=== PATIENT | female | born 1945 | race Caucasian/White ===

== ENCOUNTER 2024-12-25 08:54 | Inpatient (IN) | payer OTHER, SELFPAY ==
[2024-12-25] VITALS (11 sets, daily range): BP systolic 129–157; BP diastolic 63–79; PULSE 79–117; RESP 15–23; TEMP 36.2–36.8; O2SAT 88–99; BMI 21.9
--- NOTE | 2024-12-25 09:09 | ED_ITS ---
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 with some abdominal cramping no nausea, vomiting, fever, chills, bodyaches, urinary complaints, chest pain, shortness of breath. Patient is not on any aspirin, anticoagulants, or NSAID. She has had colonoscopies in the past with no known tumors or polyps. Other than what is stated 14 point review of system is negative. Related Data Allergies Allergy/AdvReac Type Severity Reaction Status Date / Time No Known Drug Allergies Allergy Verified 12/25/24 09:17 Review of Systems Review of Systems ROS Unobtainable: All systems reviewed & are unremarkable except as noted in HPI and below Patient History Social History Smoking Status: Former smoker Exam Narrative Exam Narrative: GENERAL: [79] year old patient appears stated age. Well-developed patient, in mild distress. HEAD: Atraumatic. Normocephalic. EYES: Pupils equal round and reactive. Extraocular motions intact. No scleral icterus. No injection or drainage. ENT: Nose without bleeding, purulent drainage. Throat without erythema, tonsillar hypertrophy or exudate. Airway patent. NECK: Trachea midline. Non tender CARDIOVASCULAR: Regular rate and rhythm without murmurs, gallops, or rubs. RESPIRATORY: Clear to auscultation. Breath sounds equal bilaterally. No wheezes, rales, or rhonchi. GASTROINTESTINAL: Abdomen soft, non-tender, nondistended. EXTREMITIES: No edema or joint tenderness. Rectal exam guiac neg BACK: Nontender without deformity or crepitance. No flank tenderness. NEURO: AOx3. SKIN: No rash or erythema of visible areas Initial Vital Signs Initial Vital Signs: Vital Signs Temperature 98.2 F 12/25/24 09:05 Pulse Rate 108 H 12/25/24 09:05 Respiratory Rate 15 12/25/24 09:05 Blood Pressure 156/74 H 12/25/24 09:05 Pulse Oximetry 99 12/25/24 09:05 Oxygen Delivery Method Room Air 12/25/24 09:05 Course Orders Ordered: ED Orders 12/25/24 09:21 CT angio Abd/Pel GI Bleed Stat 12/25/24 09:23 Complete Blood Count AUTO DIFF Stat Comprehensive Metabolic Panel Stat Lipase Stat Ondansetron HCl (Ondansetron 4 Mg/2 Ml Inj) 4 mg IV NOW PRN PRN Reason: Nausea And Vomiting Ondansetron HCl (Ondansetron 4 Mg Odt) 4 mg PO NOW PRN PRN Reason: Nausea And Vomiting Vital Signs Vital signs: Vital Signs - 8 hr 12/25/24 09:05 Temperature 98.2 F Pulse Rate 108 H Respiratory Rate 15 Blood Pressure 156/74 H Pulse Oximetry 99 Oxygen Delivery Method Room Air MDM - Abdominal Pain Lab Data 12/25/24 09:23 12/25/24 09:23 Labs: Lab Results 12/25/24 Range/Units 09:23 WBC 11.0 (4.5-11.0) X10^3/uL RBC 3.89 L (4.0-5.2) X10^6/uL Hgb 12.7 (12.0-16.0) g/dL Hct 37.8 (36-46) % MCV 97.1 (80-100) fL MCH 32.6 (26-34) PG MCHC 33.6 (30-36) % RDW 12.9 (11.6-14.8) % Plt Count 268 (150-400) X10^3/uL Neut % (Auto) 82.2 H (50-75) % Lymph % (Auto) 10.1 L (25-40) % [place] % (Auto) 6.9 (3-14) % Eos % (Auto) 0.1 L (2-4) % Baso % (Auto) 0.7 (0-2) % Neut # (Auto) 9000 H (3578-0877) /uL Lymph # (Auto) 1100 (8483-9951) /uL [place] # (Auto) 800 (0-900) /uL Eos # (Auto) 0 (0-450) /uL Baso # (Auto) 100 (0-100) /uL Sodium 139 (137-145) mmol/L Potassium 3.8 (3.4-5.1) mmol/L Chloride 105 (98-107) mmol/L Carbon Dioxide 23 (22-32) mmol/L BUN 16 (7-17) mg/dL Creatinine 0.65 (0.52-1.04) mg/dL Estimated GFR > 60 (>60) mL/min BUN/Creatinine Ratio 24.6 H (6-22) Glucose 126 H (70-99) mg/dL Calcium 9.5 (8.4-10.2) mg/dL Total Bilirubin 0.6 (0.2-1.3) mg/dL AST 26 (14-36) IU/L ALT 21 (<35) IU/L Alkaline Phosphatase 102 (38-126) U/L Total Protein 8.0 (6.3-8.2) g/dL Albumin 4.3 (3.5-5.0) g/dL Globulin 3.7 (1.7-4.1) g/dL Albumin/Globulin Ratio 1.2 (1.0-2.8) Lipase 44 (23-300) U/L Imaging Data CT scan - abdomen/pelvis: Radiologist's Impression: [place] [address] CT Scan Report Signed Patient: Bonny Smith MR#: [id number] : 1945 Acct:[id number] Age/Sex: 79 / F Date of Service: 12/25/24 Loc: ED Accession Number: [id number] Procedure: CT angio Abd/Pel GI Bleed Ordering Provider: Mayo Armenta D.O. PROCEDURE: CT ANGIO ABD/PEL GI BLEED INDICATIONS: GI BLEED TECHNIQUE: After the administration of intravenous contrast, 2.5 mm sections acquired from the diaphragm to the iliac crests. 10 mm maximum intensity projection (MIP) coronal and sagittal reformats were then performed. For radiation dose reduction, the following was used: automated exposure control. COMPARISON: None. FINDINGS: Image quality: Diagnostic. Abdominal aorta: No aortic aneurysm or evidence of acute aortic syndrome. Mesenteric arteries: Patent without hemodynamically significant stenosis. Renal arteries: Patent without hemodynamically significant stenosis. Lower chest: Unremarkable. ABDOMEN: Liver: No solid mass. Vascular shunt in segment 5/6, likely due to the presence a hemangioma. Gallbladder: No radiopaque gallstones or wall thickening. Biliary ducts: No biliary dilation. Pancreas: No ductal dilation. Spleen: Size is within normal limits. Adrenal Glands: No adrenal nodules. Kidneys and Ureters: No hydronephrosis. No solid mass. No complex renal cystic lesion which requires follow up. Stomach and Bowel: Pancolitis, with severe thickening noted of the descending and transverse colon. Adjacent pericolonic fat stranding . Peritoneum: Free fluid along the left pericolic gutter. Ventral Wall: No hernia. Abdominal Nodes: No retroperitoneal or mesenteric adenopathy by size criteria. Vessels: Aorta, as above. Normal IVC. PELVIS: Pelvic Organs: Calcified fibroid at the fundus. Pessary present. Bladder: Unremarkable. Pelvic Nodes: No enlarged lymph nodes. Miscellaneous: No inguinal hernias are seen. Bones: No aggressive osseous abnormality. Degenerative disc disease of the lumbar spine. IMPRESSION: Severe pancolitis. Findings likely represent C difficile given extent. MDM Narrative Medical decision making narrative: Vital signs, nurse triage note, medication list, previous ER visits, and all imaging studies reviewed. CT abdomen pelvis showed severe pancolitis findings likely represent C diff given extent. Patient is started on fidomyxin and fluids here. WBC 11 hemoglobin 12.7 platelets 268 sodium 139 potassium 3 point glucose 126. Differential diagnosis includes upper versus lower GI bleed, dehydration, electrolyte derangement. Case discussed with Dr. Abarca who has graciously accepted the patient for inpatient admission Discharge Plan Departure Patient Disposition: Admitted As Inpatient Clinical Impression: Pancolitis, Clostridium difficile colitis
--- NOTE | 2024-12-25 09:21 | DI.CT.S_ITS ---
PROCEDURE: CT ANGIO ABD/PEL GI BLEED INDICATIONS: GI BLEED TECHNIQUE: After the administration of intravenous contrast, 2.5 mm sections acquired from the diaphragm to the iliac crests. 10 mm maximum intensity projection (MIP) coronal and sagittal reformats were then performed. For radiation dose reduction, the following was used: automated exposure control. COMPARISON: None. FINDINGS: Image quality: Diagnostic. Abdominal aorta: No aortic aneurysm or evidence of acute aortic syndrome. Mesenteric arteries: Patent without hemodynamically significant stenosis. Renal arteries: Patent without hemodynamically significant stenosis. Lower chest: Unremarkable. ABDOMEN: Liver: No solid mass. Vascular shunt in segment 5/6, likely due to the presence a hemangioma. Gallbladder: No radiopaque gallstones or wall thickening. Biliary ducts: No biliary dilation. Pancreas: No ductal dilation. Spleen: Size is within normal limits. Adrenal Glands: No adrenal nodules. Kidneys and Ureters: No hydronephrosis. No solid mass. No complex renal cystic lesion which requires follow up. Stomach and Bowel: Pancolitis, with severe thickening noted of the descending and transverse colon. Adjacent pericolonic fat stranding . Peritoneum: Free fluid along the left pericolic gutter. Ventral Wall: No hernia. Abdominal Nodes: No retroperitoneal or mesenteric adenopathy by size criteria. Vessels: Aorta, as above. Normal IVC. PELVIS: Pelvic Organs: Calcified fibroid at the fundus. Pessary present. Bladder: Unremarkable. Pelvic Nodes: No enlarged lymph nodes. Miscellaneous: No inguinal hernias are seen. Bones: No aggressive osseous abnormality. Degenerative disc disease of the lumbar spine. IMPRESSION: Severe pancolitis. Findings likely represent C difficile given extent. Dictated by: Angus Lobo M.D. on 12/25/2024 at 9:49 Approved by: Angus Lobo M.D. on 12/25/2024 at 9:51
[2024-12-25 09:42] LABS: Add Manual Diff / Slide Review NO; Hematocrit 37.8 % (36-46); Hemoglobin 12.7 g/dL (12.0-16.0); Lymphocytes Absolute Auto 1100 /uL (1100-4500); Mean Corpuscular HGB Conc 33.6 % (30-36); Mean Corpuscular Hemoglobin 32.6 PG (26-34); Mean Corpuscular Volume 97.1 fL (80-100); Platelet Count 268 X10^3/uL (150-400)
[2024-12-25 09:54] LABS: Alanine Aminotransferase 21 IU/L (<35); Albumin 4.3 g/dL (3.5-5.0); Albumin Globulin Ratio 1.2 (1.0-2.8); Alkaline Phosphatase 102 U/L (38-126); Blood Urea Nitrogen 16 mg/dL (7-17); Calcium 9.5 mg/dL (8.4-10.2); Carbon Dioxide 23 mmol/L (22-32); Chloride 105 mmol/L (98-107); Estimated Glomerular Filt Rate > 60 mL/min (>60); Globulin 3.7 g/dL (1.7-4.1); Glucose 126 mg/dL (70-99); HEMOLYSIS < 15 (0-50); Lipase 44 U/L (23-300); Potassium 3.8 mmol/L (3.4-5.1); Sodium 139 mmol/L (137-145); Total Protein 8.0 g/dL (6.3-8.2)
[2024-12-25] MEDS: FIDAXOMICIN 200 MG TABLET PO ×2 (11:38→20:45)
--- NOTE | 2024-12-25 12:12 | PM.HP.1 ---
History of Present Illness History of Present Illness Date Patient Seen: 12/25/24 Time Patient Seen: 12:28 Chief complaint: Bloody stools x 1 day Narrative: She presented with the acute diarrhea. This began last night. She would copious diarrhea with some intermittent blood overnight. She denies much in terms of abdominal pain but has had some cramping. CT imaging in the emergency department indicated pancolitis. She was no history of colitis, but was recently diagnosed with primary biliary sclerosis. She was no family history of inflammatory bowel disease. She denies recent antibiotics or exposure to C diff toxin. Treatment for C diff toxin was initiated in the emergency department. She denies nausea, fevers, chills, or recent weight loss. She was otherwise healthy other than a history of osteoporosis and her new diagnosis of PBS. COUNTS INCLUDE 234 BEDS AT THE [facility] Social History household members: none Smoking Status: Former smoker alcohol intake: current Meds Home Medications and Allergies Home Medications ?Medication ?Instructions ?Recorded ?Confirmed ?Type alendronate 70 mg tablet 70 mg PO QWEEK 12/25/24 12/25/24 History calcium 100 mg capsule See Rx Instructions PO DAILY 12/25/24 12/25/24 History sertraline 50 mg tablet 50 mg PO DAILY 12/25/24 12/25/24 History ursodiol 500 mg tablet 500 mg PO BID 12/25/24 12/25/24 History Allergies Allergy/AdvReac Type Severity Reaction Status Date / Time No Known Drug Allergies Allergy Verified 12/25/24 09:17 Review of Systems Review of Systems Narrative: All else reviewed and otherwise unremarkable except as noted in the history and physical. Exam Vital Signs (past 8 hours): - 12/25/24 09:05 Temperature 98.2 F Pulse Rate 108 H Respiratory Rate 15 Blood Pressure 156/74 H Pulse Oximetry 99 Oxygen Delivery Method Room Air Oxygen Delivery Method Room Air Narrative Exam Narrative: NAD, alert and oriented, fluent speech, calm. Normocephalic skull, EOMI, anicteric sclera, symmetric pupils. Oropharynx unremarkable, no droop. Neck supple, midline trachea, no adenopathy. Lungs clear, normal rate and effort. Heart regular, no murmur gallop or rub. Abdomen is soft, non distended and non tender. Extremities are free of edema. Skin is free of rash or lesions. Joints are not swollen or deformed. Judgment appears to be normal. Objective Imaging CT scan - abdomen: Radiologist's impression: Severe pancolitis. Findings likely represent C difficile given extent. Labs 12/25/24 09:23 12/25/24 09:23 Labs: Laboratory Results - last 24 hr 12/25/24 09:23 WBC 11.0 RBC 3.89 L Hgb 12.7 Hct 37.8 MCV 97.1 MCH 32.6 MCHC 33.6 RDW 12.9 Plt Count 268 Neut % (Auto) 82.2 H Lymph % (Auto) 10.1 L [place] % (Auto) 6.9 Eos % (Auto) 0.1 L Baso % (Auto) 0.7 Neut # (Auto) 9000 H Lymph # (Auto) 1100 [place] # (Auto) 800 Eos # (Auto) 0 Baso # (Auto) 100 Sodium 139 Potassium 3.8 Chloride 105 Carbon Dioxide 23 BUN 16 Creatinine 0.65 Estimated GFR > 60 BUN/Creatinine Ratio 24.6 H Glucose 126 H Calcium 9.5 Total Bilirubin 0.6 AST 26 ALT 21 Alkaline Phosphatase 102 Total Protein 8.0 Albumin 4.3 Globulin 3.7 Albumin/Globulin Ratio 1.2 Lipase 44 Assessment & Plan Assessment & Plan narrative: 1. Severe colitis, present on admission and active. PLAN: -Vancomycin 150 mg QID for 10 days. -NPO -Ice water -Stool PCR She is do not resuscitate, confirmed today. Anticipate 2 midnights in the hospital given the degree of colitis on imaging. Supports inpatient status. Time-Based Coding :: 35 min spent with patient and on the chart (including review of chart, obtaining history, exam, reviewing outside data, placing orders, documenting exam and treatment plan, and counseling patient) on 12/25. Quality VTE Deep Vein Thrombosis/Pulmonary Embolism Present on Admission: No MIPS - Admit I confirm the patient?s Advance Care Plan is present, Code status is documented, Surrogate decision maker is in patient?s record [If Yes, STOP here]: Yes MIPS - Meds 'Current medications' to include all prescriptions, [id number] products, herbals, cannabis/cannabidiol products, and vitamin/mineral/dietary (nutritional) supplements. I have utilized all available resources to obtain, update, or review the patient?s current medications. [If Yes, STOP here]: Yes
[2024-12-25] MEDS: SODIUM CHLORIDE 0.9% 1,000 ML 100 ML IV ×2 (12:39→23:09)
[2024-12-26 05:33] LABS: Add Manual Diff / Slide Review NO; Hematocrit 31.8 % (36-46); Hemoglobin 11.2 g/dL (12.0-16.0); Lymphocytes Absolute Auto 1500 /uL (1100-4500); Mean Corpuscular HGB Conc 35.3 % (30-36); Mean Corpuscular Hemoglobin 33.9 PG (26-34); Mean Corpuscular Volume 96.0 fL (80-100); Platelet Count 205 X10^3/uL (150-400)
[2024-12-26 05:36] LABS: Blood Urea Nitrogen 10 mg/dL (7-17); Calcium 8.4 mg/dL (8.4-10.2); Carbon Dioxide 27 mmol/L (22-32); Chloride 107 mmol/L (98-107); Estimated Glomerular Filt Rate > 60 mL/min (>60); Glucose 100 mg/dL (70-99); HEMOLYSIS < 15 (0-50); Potassium 3.7 mmol/L (3.4-5.1); Sodium 138 mmol/L (137-145)
[2024-12-26] MEDS: SODIUM CHLORIDE 0.9% 1,000 ML 100 ML IV (07:26)
--- NOTE | 2024-12-26 07:51 | P.PN_ITS ---
Subjective Subjective Interval history: S: She has had no diarrhea. 2 episodes of rectal bleeding. No real abdomen pain, or nausea. Little appetite. Exam Vital Signs (past 8 hours): Oxygen Delivery Method Room Air Oxygen Flow Rate 0 Narrative Exam Narrative: NAD, alert and oriented. Fluent speech. Lungs are clear, normal rate and effort. Heart is regular, no murmur gallop or rub. Abdomen is soft, non distended. Non-tender. Extremities are free of edema. Objective Labs 12/26/24 04:48 12/26/24 04:48 Labs: Laboratory Results - last 24 hr 12/25/24 12/26/24 09:23 04:48 WBC 11.0 9.5 RBC 3.89 L 3.31 L Hgb 12.7 11.2 L Hct 37.8 31.8 L MCV 97.1 96.0 MCH 32.6 33.9 MCHC 33.6 35.3 RDW 12.9 12.5 Plt Count 268 205 Neut % (Auto) 82.2 H 73.0 Lymph % (Auto) 10.1 L 16.2 L [place] % (Auto) 6.9 9.6 Eos % (Auto) 0.1 L 0.7 L Baso % (Auto) 0.7 0.5 Neut # (Auto) 9000 H 6900 Lymph # (Auto) 1100 1500 [place] # (Auto) 800 900 Eos # (Auto) 0 100 Baso # (Auto) 100 100 Sodium 139 138 Potassium 3.8 3.7 Chloride 105 107 Carbon Dioxide 23 27 BUN 16 10 Creatinine 0.65 0.57 Estimated GFR > 60 > 60 BUN/Creatinine Ratio 24.6 H 17.5 Glucose 126 H 100 H Calcium 9.5 8.4 Total Bilirubin 0.6 AST 26 ALT 21 Alkaline Phosphatase 102 Total Protein 8.0 Albumin 4.3 Globulin 3.7 Albumin/Globulin Ratio 1.2 Lipase 44 PFSH Social History household members: spouse Smoking Status: Former smoker alcohol intake: current Assessment & Plan Assessment & Plan narrative: 1. Severe colitis, present on admission and active. PLAN: -Surgical consult. Dr. Fajardo feels there is no colitis on CT (disagrees with rads read). -Stop Abx. -Clear liqs. -Possible colonoscopy Saturday. She is do not resuscitate, confirmed at admission. Anticipate 2 midnights in the hospital. Supports inpatient status. Time-Based Coding :: [TOTAL MINUTES] spent with patient and on the chart (including review of chart, obtaining history, exam, reviewing outside data, placing orders, documenting exam and treatment plan, and counseling patient) on [DATE]. Quality VTE Deep Vein Thrombosis/Pulmonary Embolism Present on Admission: No
[2024-12-26 08:31] VITALS: BP 124/66; PULSE 73; RESP 14; TEMP 36.3; O2SAT 99
[2024-12-26] MEDS: FIDAXOMICIN 200 MG TABLET PO ×2 (08:47→20:01)
--- NOTE | 2024-12-26 10:41 | CM.DANOTE ---
Patient is a 79 yo female who was admitted INPT Status on 12/25/24 for Bloody Stools. Pt has [employer] for insurance and her PCP is Dr. Morrissey in [place]. EMR was reviewed. Per , pt with recent dx of biliary sclerosis and admitted for Severe Colitis and getting IV-Abx and NPO for bowel rest and likely another 1-2 days before stable for discharge. SW met bedside with pt and explained role and she confirms she lives with spouse in [place] and is currently in [place] visiting her Dtr and family. Pt is independent with ADLs at baseline and does not use DME for ambulation, still drives and no hx of HH or SNF. Pt confirms that she had a flight back to [place] scheduled for today but her Dtr already cancelled her flight home. Pt confirms she is feeling better and has been steady on her feet when ambulating in the room and preference is home to Dtr's house when stable and then will schedule her flight back home. Dtr can provide transport at d/c. Plan: SW to follow for plan of discharge to Dtr's house when stable and then fly back to her home in [place] with outpt f/u and SW to follow for any further identified discharge planning needs. JASWINDER Wong Discharge Planning/Care Management CM Discharge Assessment Start: 12/25/24 11:20 Freq: Status: Active Protocol: Document 12/26/24 10:39 BF (Rec: 12/26/24 10:41 BF [id number]) Discharge Planning Assessment Assigned Discharge JASWINDER Fleming Pasting Machine Offbearer DPOA/Assigned Dtr Sharmaine Designee Name Contact Information [phone] Advance Directives? No Advance Directives No on File History Provided By Patient,Family Member,Medical Record Has Patient been No admitted in last 30 days? Prior Living House Arrangements Household Members spouse Type of Drives own vehicle transporation used prior to admit Independent with ADL Yes 's Is patient alert and Yes oriented? Caregiver for Yes: spouse back in [place] Another Barriers to No Discharge Discharge Plan Home Transportation Dtr to transport at d/c Arrangement Referrals Initiated None needed Whiteboard Updated Yes in Patient Room with name and ext. 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
--- NOTE | 2024-12-26 13:38 | PM.HP.IH.1 ---
History of Present Illness History of Present Illness Date Patient Seen: 12/26/24 Time Patient Seen: 01:30 Date of Onset of Symptoms: 12/24/24 Chief complaint: Bloody stools x 1 day Narrative: Patient is a 79-year-old white female who was admitted through the emergency room on 12/25/2024 with diarrhea which started on 12/24/2024 as soft with occasional rectal bleeding states the toilet water was red. She denies any vertigo or syncope. Patient states that she had no abdominal pain she was being treated for C diff colitis through the ER she states she has had no further bowel movements for stool cultures since she has been here. Patient had a CT scan performed which radiologist read as a pearson colitis I do not see any really thickening of the wall IV contrast was given and no gross signs of blush or bleeding is noted patient is noted to have a vaginal pessary in place gallbladder is in place and contracted no gross pathology was noted other than a long redundant colon. Appendix was visualized with very small in trouble. Patient admitting laboratory shows WBC of 9.5 hemoglobin 11.2 hematocrit is 31.8 platelets are 205,000 sodium is 138 potassium 3.7 chloride 107 bicarb is 27 BUN of 10 creatinine 0.57 random blood sugar is 100. Has asked the patient for surgical evaluation. 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 Patient denies any other heart lungs digestive musculoskeletal neurological seizure disorder psychiatric problems risks of Infectious diseases HIV or AIDS. Past surgical history: Tonsils and adenoids, history of liver biopsy, history of right breast biopsy with follow-up radiation therapy for DCIS, colonoscopy in 2015- Social history: History of tobacco abuse 1/2 pack per day x4 years. 1970, 1 wine per, denies any recreational drug usage Vitals temperature is 97.4? pulse 73 respirations 14 BP is 124/66 SaO2 is 99% on room air patient is 5 ft 9 inches and 148 lb. Head is normocephalic eyes PERRLA EOMI is intact nares are clear septum is midline EACs and pinnae unremarkable oropharyngeal cavity is in moderate repair heart regular rate and rhythm without murmurs lungs are clear expiratory poor chest wall motion noted abdomen is soft nondistended good active bowel sounds negative Fili's cause great turns Tran's McBurney's no masses or peritoneal signs are elicited. Musculoskeletal moderate muscle tone and strength for age no gross deficits elicited. Rectal exam was performed with a female nurse in attendance patient was placed in the prone position grade 1 hemorrhoids tight anal tone no tumors masses nodules polyps or blood noted on the examining finger some soft brown stool was noted no palpable masses or tumors. Impression: Diarrhea of 2 days' duration she has had none since she has been admitted to the hospital Rectal bleeding she states was possibly dark red to bright red staining toilet water CT scan showing possible colitis as per Radiology no bleeding blush was noted on contrast study minimal wall thickening. Small noninflamed gallbladder small appendix no other findings noted other than a vaginal pessary Plan: Discussed with patient and daughter the findings of the rectal bleeding recommend colonoscopy to evaluate no rectal bleeding is noted this time procedure risks and complications were fully explained including risk for cardiopulmonary depression infection bleeding and bowel injury patient understands we will schedule electively on 03/[address] patient on clear liquid diet bowel prep in the a.m. NPO at midnight. All questions were answered to patient and family's satisfaction. No need for emergent surgical intervention. [facility] Social History household members: spouse Smoking Status: Former smoker alcohol intake: current Meds Home Medications and Allergies Home Medications ?Medication ?Instructions ?Recorded ?Confirmed ?Type alendronate 70 mg tablet 70 mg PO QWEEK 12/25/24 12/25/24 History calcium 100 mg capsule See Rx Instructions PO DAILY 12/25/24 12/25/24 History sertraline 50 mg tablet 50 mg PO DAILY 12/25/24 12/25/24 History ursodiol 500 mg tablet 500 mg PO BID 12/25/24 12/25/24 History Allergies Allergy/AdvReac Type Severity Reaction Status Date / Time No Known Drug Allergies Allergy Verified 12/25/24 09:17 Exam Vital Signs (past 8 hours): - 12/26/24 08:31 Temperature 97.4 F L Pulse Rate 73 Respiratory Rate 14 Blood Pressure 124/66 Pulse Oximetry 99 Oxygen Flow Rate 0 Oxygen Delivery Method Room Air Oxygen Flow Rate 0 Objective Labs 12/26/24 04:48 12/26/24 04:48 Labs: Laboratory Results - last 24 hr 12/26/24 04:48 WBC 9.5 RBC 3.31 L Hgb 11.2 L Hct 31.8 L MCV 96.0 MCH 33.9 MCHC 35.3 RDW 12.5 Plt Count 205 Neut % (Auto) 73.0 Lymph % (Auto) 16.2 L [place] % (Auto) 9.6 Eos % (Auto) 0.7 L Baso % (Auto) 0.5 Neut # (Auto) 6900 Lymph # (Auto) 1500 [place] # (Auto) 900 Eos # (Auto) 100 Baso # (Auto) 100 Sodium 138 Potassium 3.7 Chloride 107 Carbon Dioxide 27 BUN 10 Creatinine 0.57 Estimated GFR > 60 BUN/Creatinine Ratio 17.5 Glucose 100 H Calcium 8.4 Assessment & Plan Time-Based Coding :: [TOTAL MINUTES] spent with patient and on the chart (including review of chart, obtaining history, exam, reviewing outside data, placing orders, documenting exam and treatment plan, and counseling patient) on [DATE]. 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
[2024-12-26] MEDS: SERTRALINE 50 MG TABLET PO (14:27)
[2024-12-26 14:44] LABS: Procalcitonin 0.115 ng/mL (<0.5)
[2024-12-26 19:00] VITALS: BP 120/62; PULSE 79; RESP 18; TEMP 36.1; O2SAT 98
[2024-12-27 05:45] LABS: Add Manual Diff / Slide Review NO; Hematocrit 30.7 % (36-46); Hemoglobin 10.8 g/dL (12.0-16.0); Lymphocytes Absolute Auto 1400 /uL (1100-4500); Mean Corpuscular HGB Conc 35.3 % (30-36); Mean Corpuscular Hemoglobin 33.7 PG (26-34); Mean Corpuscular Volume 95.7 fL (80-100); Platelet Count 217 X10^3/uL (150-400)
[2024-12-27 05:59] LABS: Alanine Aminotransferase 14 IU/L (<35); Albumin 3.2 g/dL (3.5-5.0); Albumin Globulin Ratio 1.1 (1.0-2.8); Alkaline Phosphatase 69 U/L (38-126); Blood Urea Nitrogen 6 mg/dL (7-17); Calcium 8.5 mg/dL (8.4-10.2); Carbon Dioxide 27 mmol/L (22-32); Chloride 108 mmol/L (98-107); Estimated Glomerular Filt Rate > 60 mL/min (>60); Globulin 3.0 g/dL (1.7-4.1); Glucose 98 mg/dL (70-99); HEMOLYSIS < 15 (0-50); Sodium 139 mmol/L (137-145); Total Protein 6.2 g/dL (6.3-8.2)
[2024-12-27 06:11] LABS: Potassium 3.4 mmol/L (3.4-5.1)
[2024-12-27 07:00] VITALS: BP 134/63; PULSE 74; RESP 18; TEMP 36.1; O2SAT 98
[2024-12-27 08:12] LABS: CRP, High Sensitivity 12.88 mg/L (0.00-3.00)
--- NOTE | 2024-12-27 08:35 | PM.PN.1 ---
Subjective Subjective Interval history: Summary: 79-year-old female visiting her daughter, she was in [place]. She developed acute diarrhea and came in for this. Her diarrhea stopped as soon as she came in. CT scan in the ED was read as dramatic pancolitis. She was started on medication empirically for possible CDT. Stool sample has not been obtained due to cessation of bowel movements since arrival. Surgery is consulted after she would 2 episodes of limited rectal bleeding over the last day. They read the CT scan is normal. A C-reactive protein is elevated at 12. The plan is for colonoscopy on December 28. She was a recent history of primary biliary cholangitis Subjective: She denies abdominal pain and otherwise feels well. She was hungry. She was currently on a clear liquid diet. Exam Vital Signs (past 8 hours): Oxygen Delivery Method Room Air Oxygen Flow Rate 0 Narrative Exam Narrative: NAD, alert and oriented. Fluent speech. Lungs are clear, normal rate and effort. Heart is regular, no murmur gallop or rub. Abdomen is soft, non distended. Extremities are free of edema. Objective Imaging CT scan - abdomen: Radiologist's impression: Severe pancolitis. Findings likely represent C difficile given extent. Labs 12/27/24 05:06 12/27/24 05:06 Labs: Laboratory Results - last 24 hr 12/26/24 12/27/24 04:48 05:06 WBC 8.3 RBC 3.20 L Hgb 10.8 L Hct 30.7 L MCV 95.7 MCH 33.7 MCHC 35.3 RDW 12.6 Plt Count 217 Neut % (Auto) 72.1 Lymph % (Auto) 16.7 L [place] % (Auto) 9.4 Eos % (Auto) 1.1 L Baso % (Auto) 0.7 Neut # (Auto) 6000 Lymph # (Auto) 1400 [place] # (Auto) 800 Eos # (Auto) 100 Baso # (Auto) 100 Sodium 139 Potassium 3.4 Chloride 108 H Carbon Dioxide 27 BUN 6 L Creatinine 0.51 L Estimated GFR > 60 BUN/Creatinine Ratio 11.8 Glucose 98 Calcium 8.5 Total Bilirubin 0.5 AST 21 ALT 14 Alkaline Phosphatase 69 C-React Prot High Sens 12.88 H Total Protein 6.2 L Albumin 3.2 L Globulin 3.0 Albumin/Globulin Ratio 1.1 Procalcitonin 0.115 [facility] Social History household members: spouse Smoking Status: Former smoker alcohol intake: current Assessment & Plan Assessment & Plan narrative: 1. Resolved diarrhea with conflicting interpretations of CT scan. Radiology called severe colitis and general surgery feels that this appears to be relatively normal. A CRP was elevated to 12. 2. Two episodes of limited bright red blood per rectum. 3. Primary biliary cholangitis, stable. PLAN: -prep for colonoscopy, which will be performed on December 28 -continue Fidaxomycin to 100 b.i.d. for possible C diff colitis. If colonoscopy normal then she likely will be discharged on December 28. Time-Based Coding :: [TOTAL MINUTES] spent with patient and on the chart (including review of chart, obtaining history, exam, reviewing outside data, placing orders, documenting exam and treatment plan, and counseling patient) on [DATE]. Quality VTE Deep Vein Thrombosis/Pulmonary Embolism Present on Admission: No
[2024-12-27] MEDS: FIDAXOMICIN 200 MG TABLET PO ×2 (09:04→20:08)
[2024-12-27] MEDS: HEPARIN 5,000 UNIT/ML VIAL 5000 UNIT SUBCUT (09:04)
[2024-12-27] MEDS: SERTRALINE 50 MG TABLET PO (09:04)
--- NOTE | 2024-12-27 10:14 | PC.NURSE ---
Addendum entered by Ban Singleton R.N. 12/27/24 14:56: Patient started her go lytely prep around 1115am. She has been tolerating this well. Stool sample sent down for patient to do a gi panel. Patient has been having loose stools since starting prep. She is on clear liquids at this time and will be npo at oooo. Original Note: Patient denies pain at this time. Given all her medications and sq heparin. 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 We will get a stool sample from patient to check for cdiff. She is up independently to the bathroom. Tolerated her clear liquid diet. Awaiting to talk to dr to see if she will have a procedure coming.
[2024-12-27] MEDS: POTASSIUM CHLORIDE 20 MEQ TAB 40 MEQ PO (10:19)
--- NOTE | 2024-12-27 11:20 | PM.PN.IH.1 ---
Subjective Subjective Date Patient Seen: 12/27/24 Time Patient Seen: 10:00 Interval history: Patient is a 79-year-old white female was admitted for bloody diarrhea. Patient states she has not had a bowel movement since she has been in the hospital. She did have a small spot of blood this morning about the size of a dime. Denies any pain. He has not obtained any stool cultures yet. WBC is 8.3 hemoglobin of 10.8 hematocrit is 30.7 platelets are 217,000 sodium is 139 potassium 3.4 chloride 108 bicarb is 27 BUN of 6 creatinine is 0.51 random blood sugar is 98 stool cultures are pending Vitals: Temperature is 96.9? pulse 74 respirations 18 BP is 134/63 SaO2 is 98% Heart regular rate and rhythm without murmurs lungs are clear to auscultation no rales rhonchi or wheezes noted. Abdomen is soft nondistended with good active bowel sounds no masses or peritoneal signs Impression: Diarrhea with rectal bleeding Plan: Discussed with patient the findings need for colonoscopy with MAC procedure risks and complications were fully explained including risk for cardiopulmonary depression infection bleeding bowel injury patient understands and consents we will schedule for the a.m. if doing well possible discharge after. Patient understands all questions were answered satisfaction we will place on clear liquids do a bowel prep today NPO at midnight. Exam Vital Signs (past 8 hours): - 12/27/24 07:00 Temperature 96.9 F L Pulse Rate 74 Respiratory Rate 18 Blood Pressure 134/63 Pulse Oximetry 98 Oxygen Delivery Method Room Air Oxygen Flow Rate 0 Objective Labs 12/27/24 05:06 12/27/24 05:06 Labs: Laboratory Results - last 24 hr 12/26/24 12/27/24 04:48 05:06 WBC 8.3 RBC 3.20 L Hgb 10.8 L Hct 30.7 L MCV 95.7 MCH 33.7 MCHC 35.3 RDW 12.6 Plt Count 217 Neut % (Auto) 72.1 Lymph % (Auto) 16.7 L [place] % (Auto) 9.4 Eos % (Auto) 1.1 L Baso % (Auto) 0.7 Neut # (Auto) 6000 Lymph # (Auto) 1400 [place] # (Auto) 800 Eos # (Auto) 100 Baso # (Auto) 100 Sodium 139 Potassium 3.4 Chloride 108 H Carbon Dioxide 27 BUN 6 L Creatinine 0.51 L Estimated GFR > 60 BUN/Creatinine Ratio 11.8 Glucose 98 Calcium 8.5 Total Bilirubin 0.5 AST 21 ALT 14 Alkaline Phosphatase 69 C-React Prot High Sens 12.88 H Total Protein 6.2 L Albumin 3.2 L Globulin 3.0 Albumin/Globulin Ratio 1.1 Procalcitonin 0.115 PFSH Social History household members: spouse Smoking Status: Former smoker alcohol intake: current Assessment & Plan Time-Based Coding :: [TOTAL MINUTES] spent with patient and on the chart (including review of chart, obtaining history, exam, reviewing outside data, placing orders, documenting exam and treatment plan, and counseling patient) on [DATE]. Quality VTE Deep Vein Thrombosis/Pulmonary Embolism Present on Admission: No [facility] PROFEE Telecommunications Manager Document charge(s): Yes
[2024-12-27] MEDS: PEG3350/SOD SULF,BICARB,CL/KCL 4,000 ML SOLUTION 4000 ML PO (11:47)
--- NOTE | 2024-12-27 11:57 | CM.DPC ---
DCP Cont: Per MD and Surgeon, recommending colonoscopy tomorrow Mon with Surgeon to determine any further medical needs and pt's diarrhea seems to have resolved but did still have some rectal bleeding yesterday. Likely discharge home after scope pending results. Pt has remained independent in room and pleasant and conversant. JASWINDER Wong
[2024-12-27 15:44] LABS: Clostridium difficile toxin AB Detected (Not Detect); Enteroaggregative E.coli Not Detected (Not Detect); Enteropathogenic E.coli Not Detected (Not Detect); Enterotoxigenic E.coli It/st Not Detected (Not Detect); Plesiomonsa shigelloides Not Detected (Not Detect); Shiga-like toxin-prod E.coli Not Detected (Not Detect)
[2024-12-27 21:12] VITALS: BP 138/67; PULSE 67; RESP 16; TEMP 36.2; O2SAT 97
[2024-12-27] MEDS: SODIUM CHLORIDE 0.9% 1,000 ML 75 ML IV (23:38)
[2024-12-28] VITALS (7 sets, daily range): BP systolic 118–151; BP diastolic 56–77; PULSE 69–81; RESP 16–22; TEMP 36.3–36.8; O2SAT 98–100
--- NOTE | 2024-12-28 | PATH_ITS ---
[facility] Accession Number: [id number] No. of containers..01 Tissue . 01 Material submitted: . colon - COLON, RANDOM . 01 Diagnosis: RANDOM COLON, BIOPSY: Colonic mucosa with no diagnostic abnormality. Negative for active, chronic, and microscopic colitis. Negative for dysplasia and malignancy. . MRV 12/31/2024 1705 Local . 01 Electronically signed: . Omid Echavarria MD, PhD, Pathologist NPI- [id number] . 01 Gross description: . Received in formalin with two identifiers and random biopsies are six whiting soft tissue fragments, 0.2 to 0.3 cm in greatest dimension, submitted in A1. ([id number]) /MRV 12/30/20242045 Local . 01 Pathologist provided ICD-10: K62.5, R19.7 . 01 CPT . 088640 Specimen Comment: A courtesy copy of this report has been sent to [facility] Performed at: [address] [address], [place], [place] [id number] MD Cong Schaffer MD Phone: [phone]
[2024-12-28 06:34] LABS: Add Manual Diff / Slide Review NO; Hematocrit 30.1 % (36-46); Hemoglobin 10.6 g/dL (12.0-16.0); Lymphocytes Absolute Auto 1100 /uL (1100-4500); Mean Corpuscular HGB Conc 35.3 % (30-36); Mean Corpuscular Hemoglobin 33.8 PG (26-34); Mean Corpuscular Volume 95.9 fL (80-100); Platelet Count 198 X10^3/uL (150-400)
[2024-12-28 06:53] LABS: Alanine Aminotransferase 15 IU/L (<35); Albumin 3.2 g/dL (3.5-5.0); Albumin Globulin Ratio 1.1 (1.0-2.8); Alkaline Phosphatase 71 U/L (38-126); Blood Urea Nitrogen 5 mg/dL (7-17); Calcium 8.3 mg/dL (8.4-10.2); Carbon Dioxide 26 mmol/L (22-32); Chloride 108 mmol/L (98-107); Estimated Glomerular Filt Rate > 60 mL/min (>60); Globulin 3.0 g/dL (1.7-4.1); Glucose 91 mg/dL (70-99); HEMOLYSIS < 15 (0-50); Potassium 3.3 mmol/L (3.4-5.1); Sodium 139 mmol/L (137-145); Total Protein 6.2 g/dL (6.3-8.2)
[2024-12-28 06:54] LABS: Magnesium 1.7 mg/dL (1.6-2.3)
[2024-12-28] MEDS: POTASSIUM CHLORIDE IN WATER 10 MEQ/100 ML PIGGYBACK 100 MEQ IV ×2 (09:58→12:41)
[2024-12-28] MEDS: LACTATED RINGERS 1,000 ML 42 ML IV (09:58)
--- NOTE | 2024-12-28 10:44 | PM.PN.IH.1 ---
Subjective Subjective Date Patient Seen: 12/28/24 Time Patient Seen: 10:45 Interval history: Patient was seen and holding area for surgery. Discussed the findings and the need for colonoscopy with MAC. Procedure risks and complications were fully explained including risk for cardiopulmonary depression infection bleeding bowel injury patient understands and consents. All questions were answered patient's satisfaction. Patient understands we will do some random biopsies because of the diarrhea and bleeding. If patient is doing well possible discharge this date as per hospitalist. Patient has follow-up in the surgical office for path report in 1 week. Patient states she has been NPO since midnight has had good results no further signs of bleeding. Heart regular rate and rhythm without murmurs lungs clear to auscultation abdomen is soft nondistended no masses or peritoneal signs. Exam Vital Signs (past 8 hours): - 12/28/24 08:16 12/28/24 09:57 Temperature 97.5 F L 97.3 F L Pulse Rate 79 81 Respiratory Rate 16 18 Blood Pressure 151/66 H 143/77 H Pulse Oximetry 98 99 Oxygen Delivery Method Room Air Oxygen Flow Rate 0 Oxygen Delivery Method Room Air Oxygen Flow Rate 0 Objective Labs 12/28/24 05:31 12/28/24 05:31 Labs: Laboratory Results - last 24 hr 12/27/24 12/28/24 14:10 05:31 WBC 4.9 RBC 3.14 L Hgb 10.6 L Hct 30.1 L MCV 95.9 MCH 33.8 MCHC 35.3 RDW 12.6 Plt Count 198 Neut % (Auto) 64.1 Lymph % (Auto) 23.2 L [place] % (Auto) 10.2 Eos % (Auto) 1.8 L Baso % (Auto) 0.7 Neut # (Auto) 3100 Lymph # (Auto) 1100 [place] # (Auto) 500 Eos # (Auto) 100 Baso # (Auto) 0 Sodium 139 Potassium 3.3 L Chloride 108 H Carbon Dioxide 26 BUN 5 L Creatinine 0.49 L Estimated GFR > 60 BUN/Creatinine Ratio 10.2 Glucose 91 Calcium 8.3 L Magnesium 1.7 Total Bilirubin 0.5 AST 25 ALT 15 Alkaline Phosphatase 71 Total Protein 6.2 L Albumin 3.2 L Globulin 3.0 Albumin/Globulin Ratio 1.1 Stl C. cayetanensis PCR Not detected Stool Rotavirus (PCR) Not detected Stool Adenovirus (PCR) Not detected Stool Astrovirus (PCR) Not detected Stool Cryptosporidium PCR Not detected Stl E.coli Shiga Tox PCR Not detected St Sh/Enteroin Ecoli PCR Not detected Stl Enterotoxigenic E PCR Not detected Stool EPEC (PCR) Not detected Stl E. histolytica PCR Not detected Stool Giardia Lamblia PCR Not detected Stool Sapovirus (PCR) Not detected Stl P. shigelloides PCR Not detected St Y.enterocolitica PCR Not detected Stool Vibrio (PCR) Not detected Stl Vibrio cholerae PCR Not detected Stl Enteroaggr Ecoli PCR Not detected Stl Norovirus GI/GII PCR Not detected Campylobacter (PCR) Not detected C. difficile Tox (PCR) Detected H Salmonella (PCR) Not detected PFSH Social History household members: spouse Smoking Status: Former smoker alcohol intake: current Assessment & Plan Time-Based Coding :: [TOTAL MINUTES] spent with patient and on the chart (including review of chart, obtaining history, exam, reviewing outside data, placing orders, documenting exam and treatment plan, and counseling patient) on [DATE]. Quality VTE Deep Vein Thrombosis/Pulmonary Embolism Present on Admission: No IH PROFEE Rehabilitation Services Counselor Document charge(s): Yes
--- NOTE | 2024-12-28 11:46 | PM.OP.ENDO ---
Operative Date/Time/Diagnoses Date of procedure: 12/28/24 Time of procedure: 10:30 Pre-op diagnosis: Diarrhea with rectal bleeding abdominal pain Post-op diagnosis: other Procedure & Clinicians Study performed: Patient is a 79-year-old white female was admitted in the hospital as per hospitalist for diarrhea and rectal bleeding of several days duration. Patient had no further stools since she was admitted in the hospital stool culture was not performed yet. Patient was discussed the findings the need for colonoscopy with MAC with control of bleeding and possible random biopsies of the colon. Procedure risks and complications were fully explained including risk for cardiopulmonary depression infection bleeding bowel injury patient understood and consented had undergone a clear liquid diet bowel prep NPO at midnight. Patient was taken to the endoscopy suite was given continuous pulse oximetry nasal cannula oxygen and EKG monitoring patient was placed in the left recumbent position given adequate IV sedation as per anesthesia after adequate analgesia time-out was performed patient procedure and surgeon. Digital rectal exam was performed grade 1 hemorrhoids no tumors last night as polyps or blood noted on the examining finger liquid yellow stool was noted video colonoscope was then lubricated and advanced slowly through the colon patient was noted to have colitis mild from 15 cm of 45 cm scattered diverticula were noted no sign infection inflammation or bleeding very long redundant colon was noted with multiple maneuvers the scope was advanced to the cecum across the FS identified appendiceal orifice ileocecal valve and pressure right lower quadrant. Patient had the scope was slowly withdrawn washing all materials all the cevallos aspirating all puddles some vegetable material and skins were noted these were removed the it with the avoid a hidden pathology random biopsies were taken of the colon patient was noted to have some moderate colitis the 45-15 cm 8 or more biopsies were taken of this area diverticular disease was noted the sigmoid colon no signs of active inflammation was noted the scope was withdrawn to the anal verge grade 1 internal hemorrhoids all insufflated air was aspirated and the scope was removed. Patient tolerated procedure well without incident or complication patient was turned to cover room in satisfactory condition. Patient may be discharged as per hospitalist follow up in the surgery clinic for biopsy reports in 1-2 weeks or if any problems questions or concerns. All questions were answered to patient and family satisfaction. Same procedure(s) as scheduled: Yes (Colonoscopy with MAC with random biopsies of colon) Surgeon: Eliseo Jeong Anesthesia Type: MAC +/- Procedure Notes Scope withdrawal time: Greater than 10 minutes Findings: colitis, diverticulosis and internal hemorrhoids Complications: none Post-procedure Recommendations: High fiber diet Disposition: PACU
--- NOTE | 2024-12-28 13:29 | P.DS_ITS ---
History of Present Illness History of Present Illness Date Patient Seen: 12/28/24 Chief complaint: Bloody stools x 1 day Narrative: Chief complaint: Diarrhea equivocal serologies for Clostridium difficile symptoms resolved History of present illness: 12/25: Copious diarrhea with some intermittent blood overnight. She denies much in terms of abdominal pain but has had some cramping. CT imaging in the emergency department indicated pancolitis. She was no history of colitis, but was recently diagnosed with primary biliary sclerosis. She was no family history of inflammatory bowel disease. She denies recent antibiotics or exposure to C diff toxin. Treatment for C diff toxin was initiated in the emergency department. She denies nausea, fevers, chills, or recent weight loss. Hospital course: 12/26-12/28: Patient had no further episodes of diarrhea Clostridium difficile toxin present but RNA not that no more episodes of diarrhea since being hospitalized underwent colonoscopy biopsies were performed: Except from colonoscopy report: ?random biopsies were taken of the colon patient was noted to have some moderate colitis the 45-15 cm 8 or more biopsies were taken of this area diverticular disease was noted the sigmoid colon no signs of active inflammation was noted the scope was withdrawn to the anal verge grade 1 internal hemorrhoids all insufflated air was aspirated and the scope was removed. Procedure Notes Scope withdrawal time: Greater than 10 minutes Findings: colitis, diverticulosis and internal hemorrhoids Complications: none Post-procedure Recommendations: High fiber diet? Review of systems: No further diarrhea no abdominal pain nausea vomiting No chest pain palpitations shortness for breath Physical exam: No acute distress Alert and cogent No labored No distended at Extremities no edema or cyanosis Assessment and plan: Colitis equivocal C diff positive we will empirically treat with vancomycin for 10 days orally discharged home the patient is fit for [facility] follow up with PCP to obtain biopsy reports 35 minutes were involved in management this patient including [id number] interview with the patient and visitor physical examination of the patient review of reports objective laboratory findings discussion with surgeon and with nurse Discharge Providers Provider Date of admission: 12/25/24 11:12 Discharge Date: 12/28/24 Discharge provider: Estevan Torrez MD Exam Vital Signs (past 8 hours): - 12/28/24 08:16 12/28/24 09:57 12/28/24 11:40 Temperature 97.5 F L 97.3 F L 98.2 F Pulse Rate 79 81 74 Respiratory Rate 16 18 22 Blood Pressure 151/66 H 143/77 H 122/56 L Pulse Oximetry 98 99 100 Oxygen Delivery Method Room Air Room Air Oxygen Flow Rate 0 12/28/24 11:45 12/28/24 11:50 12/28/24 11:55 Temperature 98.2 F Pulse Rate 74 78 69 Respiratory Rate 20 21 22 Blood Pressure 118/57 L 128/66 145/67 H Pulse Oximetry 100 100 99 Oxygen Delivery Method Room Air Room Air Room Air Oxygen Flow Rate 12/28/24 12:00 Temperature 98.2 F Pulse Rate 75 Respiratory Rate 20 Blood Pressure 141/75 H Pulse Oximetry 99 Oxygen Delivery Method Room Air Oxygen Flow Rate Oxygen Delivery Method Room Air Oxygen Flow Rate 0 Objective Labs 12/28/24 05:31 12/28/24 05:31 Labs: Laboratory Results - last 24 hr 12/27/24 12/28/24 14:10 05:31 WBC 4.9 RBC 3.14 L Hgb 10.6 L Hct 30.1 L MCV 95.9 MCH 33.8 MCHC 35.3 RDW 12.6 Plt Count 198 Neut % (Auto) 64.1 Lymph % (Auto) 23.2 L [place] % (Auto) 10.2 Eos % (Auto) 1.8 L Baso % (Auto) 0.7 Neut # (Auto) 3100 Lymph # (Auto) 1100 [place] # (Auto) 500 Eos # (Auto) 100 Baso # (Auto) 0 Sodium 139 Potassium 3.3 L Chloride 108 H Carbon Dioxide 26 BUN 5 L Creatinine 0.49 L Estimated GFR > 60 BUN/Creatinine Ratio 10.2 Glucose 91 Calcium 8.3 L Magnesium 1.7 Total Bilirubin 0.5 AST 25 ALT 15 Alkaline Phosphatase 71 Total Protein 6.2 L Albumin 3.2 L Globulin 3.0 Albumin/Globulin Ratio 1.1 Stl C. cayetanensis PCR Not detected Stool Rotavirus (PCR) Not detected Stool Adenovirus (PCR) Not detected Stool Astrovirus (PCR) Not detected Stool Cryptosporidium PCR Not detected Stl E.coli Shiga Tox PCR Not detected St Sh/Enteroin Ecoli PCR Not detected Stl Enterotoxigenic E PCR Not detected Stool EPEC (PCR) Not detected Stl E. histolytica PCR Not detected Stool Giardia Lamblia PCR Not detected Stool Sapovirus (PCR) Not detected Stl P. shigelloides PCR Not detected St Y.enterocolitica PCR Not detected Stool Vibrio (PCR) Not detected Stl Vibrio cholerae PCR Not detected Stl Enteroaggr Ecoli PCR Not detected Stl Norovirus GI/GII PCR Not detected Campylobacter (PCR) Not detected C. difficile Tox (PCR) Detected H Salmonella (PCR) Not detected PFSH Social History household members: spouse Smoking Status: Former smoker alcohol intake: current Discharge Plan Discharge Plan Patient Disposition: Home Discharge orders & Medications Prescriptions: New vancomycin 125 mg capsule 125 mg PO QID Qty: 30 0RF Continued ursodiol 500 mg tablet 500 mg PO BID alendronate 70 mg tablet 70 mg PO QWEEK Patient Comments: TAKES ON SUNDAYS sertraline 50 mg tablet 50 mg PO DAILY calcium 100 mg capsule See Rx Instructions PO DAILY Rx Instructions: PT DOES NOT KNOW orally daily; Visit Report/Discharge Packet Instructions: High-Fiber Diet Stand Alone Forms: Patient Portal/API, Stroke Signs & Symptoms Quality VTE Deep Vein Thrombosis/Pulmonary Embolism Present on Admission: No
--- NOTE | 2024-12-28 14:06 | CM.DPC ---
DCP Discharge Home Per MD and Surgeon, pt had her colonoscopy this morning and medically stable to d/c home with outpt f/u and no identified barriers to discharge. SW met bedside with pt and Dtr and they confirm they remain agreeable to discharge home today and Dtr will transport and pt plans to fly back to [place] sometime this week but will stay with Dtr for a couple days. PO abx sent to [facility]. Pt denies any further d/c needs. JASWINDER Wong
[2024-12-28] MEDS: POTASSIUM CHLORIDE 20 MEQ TAB PO (14:25)
--- NOTE | 2024-12-28 16:15 | PC.NURSE ---
Discharge Note Patient A&O, VSS, RA, no complaints of pain/discomfort. Discharge packet reviewed with patient, all questions/concerns addressed. PIV discontinued. Patient able to dress self and pack all belongings. Patient taken down via wheelchair to POV.
[2024-12-29 14:08] LABS: C difficie Toxins A and B, EIA Negative (Negative)
== END 2024-12-28 15:45 | disposition home or self-care (01) | DRG 371 ==
LOC: ED 11:12 → AC 11:14
PROVIDERS: Surgery; Admitting Provider Hospitalist; Emergency Provider Family Medicine; Referring Provider Family Medicine; Visit Provider Hospitalist
PROC: 0DJD8ZZ Inspection of Lower Intestinal Tract, Via Natural or Artificial Opening Endoscopic (ICD-10-PCS; CPT 45378; principal; 2024-12-28 10:30)
DX: A04.72 Enterocolitis due to Clostridium difficile, not specified as recurrent (principal); K57.31 Diverticulosis of large intestine without perforation or abscess with bleeding; F32.A Depression, unspecified; K74.3 Primary biliary cirrhosis; M81.0 Age-related osteoporosis without current pathological fracture; K64.8 Other hemorrhoids; Z85.3 Personal history of malignant neoplasm of breast; Z66 Do not resuscitate; Z87.891 Personal history of nicotine dependence
CPT/HCPCS: 36415; 74174; 80048; 80053; 83690; 83735; 84145; 85025; 86140; 87324; 87507; 99284; J1644; J2704; Q9967